=== PATIENT | female | born 1970 | race Caucasian/White ===

== ENCOUNTER 2020-08-05 02:45 | Emergency (ER) | payer OTHER ==
[~2020-08-05] VITALS: Ht 177.8 cm; Wt 75.0 kg
[~2020-08-05 02:45] MED LIST: ACCUPRIL5MGTAB; CEPHALEXIN500 M1 PO; DOXYCYCLINE 10100 MG PO; HUMALOG100 U/ML SQ; LEVEMIR100 U/ML SQ; LIPITOR20 MG PO; MOTRIN 600600 MG/TAB PO; [UNRECOGNIZED DRUG - OTHER] SQ
[2020-08-05 02:47] VITALS: TEMP 97.1
[2020-08-05] MEDS ORDERED: NOVOLIN R100 U/ML SQ (03:02)
[2020-08-05] MEDS ORDERED: NOVOLIN N100 U/ML SQ (03:02)
[2020-08-05 03:16] LABS: BASO # 0.1 (0.0-0.2); BASO % 0.8 % (0.0-2.0); EOS # 0.6 (0.0-0.7); EOS % 5.3 % (0-4.0); GRAN # 5.2 (1.4-6.5); GRAN % 47.9 % (42.2-75.2); HEMATOCRIT 41.9 % (37.0-47.0); HEMOGLOBIN 13.8 g/dl (12.5-16.0); LYMPH # 4.4 (1.2-3.4); LYMPH % 40.7 % (20.0-51.0); MEAN CELL VOLUME 92 fl (80.0-100.0); MEAN CORPUSCULAR HEMOGLOBIN 30 pg (27.0-31.0); MEAN CORPUSCULAR HGB CONC 33 g/dl (33.0-37.0); MEAN PLATELET VOLUME 9.7 fl (7.4-10.4); MONO # 0.6 (0.1-0.6); PLATELET COUNT 404 K/mm3 (130-400); RED BLOOD COUNT 4.58 M/mm3 (4.10-5.30); REDCELL DISTRIBUTION WIDTH-CV 12.4 % (11.5-14.5)
[2020-08-05 03:23] LABS: ALANINE AMINOTRANSFERASE 28 U/L (4-34); ALBUMIN 4.5 gm/dL (3.5-5.0); ALKALINE PHOSPHATASE 172 U/L (50-136); ANION GAP 8 mmol/L (7-16); AST,SGOT 34 U/L (15-37); BILIRUBIN,TOTAL 0.4 mg/dL (0.0-1.0); BLOOD UREA NITROGEN 19 mg/dL (7-17); CALCIUM 9.8 mg/dL (8.4-10.2); CARBON DIOXIDE 28 mmol/L (22-30); CHLORIDE 101 mmol/L (98-107); CREATININE, serum 0.83 (0.52-1.25); GLUCOSE 333 mg/dL (74-106); POTASSIUM 3.9 mmol/L (3.4-5.0); SODIUM 137 mmol/L (137-145); TOTAL PROTEIN 9.7 gm/dL (6.4-8.2)
[2020-08-05 03:34] LABS: TROPONIN-I < 0.012 ng/mL (0.000-0.035)
[2020-08-05 04:05] VITALS: BP 113/70; PULSE 94
== END 2020-08-05 04:09 | disposition home or self-care (01) ==
LOC: COL.ER 02:45
PROVIDERS: Emergency Medicine Emergency Medical Services
DX: E11.65 Type 2 diabetes mellitus with hyperglycemia (principal); R00.0 Tachycardia, unspecified; Z79.4 Long term (current) use of insulin
CPT/HCPCS: J7030